=== PATIENT | female | born 1990 | race Two or more races ===

== ENCOUNTER 2022-10-13 11:26 | Emergency (ER) | payer MEDICAID ==
[~2022-10-13] VITALS: Ht 172.7 cm; Wt 54.4 kg
[2022-10-13 11:58] LABS: PREGNANCY TEST URINE QUAL NEGATIVE (NEGATIVE)
[2022-10-13 11:59] LABS: APPEARANCE,URINE CLEAR (CLEAR); BILIRUBIN,URINE NEGATIVE (NEGATIVE); BLOOD, URINE NEGATIVE Ery/uL (NEGATIVE); COLOR,URINE DARK YELLOW (YELLOW); KETONES,URINE NEGATIVE (NEGATIVE); LEUKOCYTE ESTERASE ,URINE NEGATIVE (NEGATIVE); NITRITE, URINE NEGATIVE (NEGATIVE); PH,URINE 7.5 (5.0-8.0); PROTEIN,URINE 1+ mg/dl (NEGATIVE); UGLUCOSE NEGATIVE (NEGATIVE); UROBILINOGEN,URINE 0.2 EU/dL (0.2)
[2022-10-13 12:11] LABS: BASOPHILS % (AUTO) 0.4 % (0.0-2.0); EOSINOPHILS # (AUTO) 0.1 K/uL (0.0-0.7); EOSINOPHILS % (AUTO) 1.8 % (0.0-6.0); HEMATOCRIT 41 % (33-45); HEMOGLOBIN 13.7 g/dL (11.5-14.8); LYMPHOCYTES # (AUTO) 2.1 K/uL (0.8-4.8); LYMPHOCYTES % (AUTO) 27.3 % (20.0-44.0); MEAN CORPUSCULAR HEMOGLOBIN 30 PG (26.0-33.0); MEAN CORPUSCULAR HGB CONC 33 g/dl (31.0-36.0); MEAN CORPUSCULAR VOLUME 89 fL (82-100); MONOCYTES # (AUTO) 0.5 K/uL (0.1-1.30); MONOCYTES % (AUTO) 6.7 % (2.0-12.0); NEUTROPHILS # (AUTO) 4.8 K/uL (1.8-8.9); NEUTROPHILS % (AUTO) 63.8 % (43.0-81.0); PLATELET COUNT (AUTO) 215 K/uL (150-450); RED BLOOD CELL COUNT(AUTO) 4.61 MIL/uL (4.0-5.2); RED CELL DISTRIBUTION WIDTH 13.4 % (11.5-15.0); WHITE BLOOD COUNT (AUTO) 7.6 K/uL (4.3-11.0)
[2022-10-13 12:22] LABS: CALCIUM, SERUM 9.9 mg/dL (8.5-10.1); CREATININE 0.5 mg/dL (0.6-1.3); POTASSIUM 3.7 mmol/L (3.5-5.1)
[2022-10-13 12:28] LABS: ALBUMIN 4.1 g/dL (3.4-5.0); BILIRUBIN,DIRECT 0.1 mg/dL (0.0-0.2); BILIRUBIN,TOTAL 0.5 mg/dL (0.2-1.0); TOTAL PROTEIN, SERUM 7.9 g/dL (6.4-8.2)
[2022-10-13] MEDS ORDERED: KETOROLAC TROMETHAMINE 15 MG/ML VIAL ONE (13:26)
[2022-10-13] MEDS ORDERED: KETOROLAC TROMETHAMINE INJ 30 MG/ML VIAL IV ONE (13:30)
[2022-10-13 13:38] VITALS: TEMP 98.4
[2022-10-13] MEDS ORDERED: IOHEXOL-300 100 ML VIAL IV ONE (13:51)
[2022-10-13] MEDS ORDERED: IV NS 0.9% 250 ML IV ONE (13:52)
[2022-10-13] MEDS ORDERED: FENTANYL PF 100MCG/2ML AMPUL IM ONE (14:30)
[2022-10-13] MEDS ORDERED: FENTANYL PF 100MCG/2ML AMPUL ONE ×2 (14:41→15:03)
[2022-10-13] MEDS ORDERED: FENTANYL PF 100MCG/2ML AMPUL IV ONE (15:00)
[2022-10-13] MEDS ORDERED: ONDA4TAB11 PO (15:08)
[2022-10-13] MEDS ORDERED: HYDR-4209 PO (15:08)
[2022-10-13 15:40] VITALS: BP 125/84; O2SAT 100
[2022-10-13] MEDS ORDERED: HYDR-4279 PO (16:11)
[2022-10-13] MEDS ORDERED: OXYC10TA49 PO (16:45)
[2022-10-13] MEDS ORDERED: TIZA4TAB5 PO (19:05)
== END 2022-10-13 15:43 | disposition home or self-care (01) ==
LOC: ER 11:43
DX: N83.202 Unspecified ovarian cyst, left side (principal); Z88.5 Allergy status to narcotic agent; Z88.8 Allergy status to other drugs, medicaments and biological substances
CPT/HCPCS: 99285; 74177; 76856; 96374; 96375; 96376; 76705; 85025; 80048; 83690; 80076; 84703; 81003; 36415; J3010 ×2; J7050; A4223; Q9967; J1885

== ENCOUNTER 2023-02-22 20:48 | Emergency (ER) | payer MEDICAID ==
[~2023-02-22] VITALS: Ht 167.6 cm; Wt 54.4 kg
[~2023-02-22 20:48] MED LIST: HYDR-4209 PO; HYDR-4279 PO; ONDA4TAB11 PO; OXYC10TA49 PO; TIZA4TAB5 PO
[2023-02-22 23:05] VITALS: BP 101/69; TEMP 98.2
[2023-02-22 23:19] VITALS: O2SAT 100
== END 2023-02-22 23:19 | disposition home or self-care (01) ==
LOC: ER 20:51
DX: R45.82 Worries (principal); Z79.899 Other long term (current) drug therapy; Z60.2 Problems related to living alone; Z88.5 Allergy status to narcotic agent; Z88.1 Allergy status to other antibiotic agents